=== PATIENT | female | born 1955 | race Caucasian/White ===

== ENCOUNTER 2025-05-12 19:18 | Emergency (ER) | payer MEDICARE, MEDICAID ==
[2025-05-12] MEDS: Acetaminophen/oxyCODONE 325-5 MG Tab PO PRN (21:34)
== END 2025-05-12 21:57 ==
LOC: LB.ED 19:18
DX: S82.392A Other fracture of lower end of left tibia, initial encounter for closed fracture (principal); W11.XXXA Fall on and from ladder, initial encounter; Y93.89 Activity, other specified
CPT/HCPCS: 29515; 73610-LT; 99284-25; A9270-GY